=== PATIENT | male | born 1985 | race American Indian/Alaskan Native ===

== ENCOUNTER 2022-04-29 16:23 | Emergency (ER) | payer OTHER ==
[~2022-04-29] VITALS: Ht 182.9 cm; Wt 99.7 kg
[2022-04-29] MEDS ORDERED: ZESTRIL40 MG PO (19:43)
[2022-04-29] MEDS ORDERED: METFORMIN HCL500 MG PO (19:44)
[2022-04-29] MEDS ORDERED: CHLORDIAZEPOXID25 MG PO (21:57)
== END 2022-04-29 22:37 | disposition home or self-care (01) ==
LOC: ED 16:23
DX: F10.10 Alcohol abuse, uncomplicated (principal); F32.A Depression, unspecified; I10 Essential (primary) hypertension; Z20.822 Contact with and (suspected) exposure to COVID-19; E11.9 Type 2 diabetes mellitus without complications; Z88.6 Allergy status to analgesic agent; Z79.899 Other long term (current) drug therapy; Z79.84 Long term (current) use of oral hypoglycemic drugs
CPT/HCPCS: 36415; 80053; 81001; 85025; 87502; 96365; 96366; 96375; 99284-25; G0480; J2060; J3411; J7030; U0003

== ENCOUNTER 2024-05-16 15:06 | Emergency (ER) | payer OTHER ==
[~2024-05-16] VITALS: Ht 182.9 cm; Wt 98.9 kg
[~2024-05-16 15:06] MED LIST: CHLORDIAZEPOXID25 MG PO; METFORMIN HCL500 MG PO; ZESTRIL40 MG PO
[2024-05-16] MEDS ORDERED: GLIPIZIDE2.5 MG PO (15:24)
[2024-05-16] MEDS ORDERED: SODIUM CHLORIDE 0.9% 1,000 ML IV ONE (15:30)
[2024-05-16] MEDS ORDERED: LORazepam 2 MG/ML VIAL IV ONE (15:30)
[2024-05-16] MEDS ORDERED: ondansetron HCL 4 MG/2 ML VIAL IV ONE (15:30)
[2024-05-16 15:51] LABS: EOSINOPHILS 0.8 % (0-6); HEMATOCRIT 42.4 % (35.0-50.0); HEMOGLOBIN 15.2 g/dL (12.0-18.0); LYMPHOCYTES 14.2 % (24-44); MCH 31.8 (27-36); MCV 88.5 fl (81-99); MONOCYTES 5.2 % (0-12); NEUTROPHILS 78.8 % (39-80); PLATELET COUNT 288 K/uL (140-440); RBC 4.79 M/ul (4.3-5.7)
[2024-05-16 16:14] LABS: ALBUMIN 3.8 g/dL (3.4-5.0); ALBUMIN/GLOBULIN RATIO 0.9 (1.1-2.4); BILIRUBIN, TOTAL 0.9 ng/dL (0.2-1.0); BUN/CREATININE RATIO 9.41 (6.0-28.6); CALCIUM 8.8 mg/dL (8.5-10.1); CREATININE, SERUM 0.85 mg/dL (0.70-1.30); MAGNESIUM 1.6 mg/dL (1.8-2.4)
[2024-05-16] MEDS ORDERED: CHLORDIAZEPOXID25 MG PO (16:50)
[2024-05-16] MEDS ORDERED: ONDANSETRON ODT8 MG PO (16:50)
[2024-05-16] MEDS ORDERED: CHLORDIAZEPOXIDE 25 MG CAP PO ONE (17:00)
[2024-05-16] MEDS ORDERED: MAGNESIUM OXIDE 400 MG TABLET PO ONE (17:00)
[2024-05-16 17:32] VITALS: BP 147/103
== END 2024-05-16 17:30 | disposition home or self-care (01) ==
LOC: ED 15:06
PROVIDERS: Emergency Medicine
DX: F10.239 Alcohol dependence with withdrawal, unspecified (principal); I10 Essential (primary) hypertension; E11.9 Type 2 diabetes mellitus without complications; Z79.84 Long term (current) use of oral hypoglycemic drugs; Z79.899 Other long term (current) drug therapy; Z88.6 Allergy status to analgesic agent; Z88.8 Allergy status to other drugs, medicaments and biological substances
CPT/HCPCS: 36415; 80053; 83690; 83735; 85025; 96361; 96374; 96375; 99284-25; G0480; J2060; J2405; J7030